=== PATIENT | male | born 1930 | race Caucasian/White ===

== ENCOUNTER 2017-02-08 15:41 | Inpatient (IN) | payer MEDICARE, MEDICAID ==
--- NOTE | 2017-02-08 16:49 | DR.GENAD ---
HPI - PCP Primary Care Physician: CLEM BAILEY - Complaint/Symptoms Chief Complaint Doctors Comments: Patient has been seen by his PCP on regular visitation and orthopedics today. He has been getting routine wound care of the right foot dorsally weekly. Chief Complaint:: PT STATES " I HAVE BEEN CONFUSED FOR 2 WEEKS AND MY LEGS HAVE BEEN HURTING AND THE PAIN MEDS DON'T WORK AND DR. [place] AND PTS WOUND MD THINKS THE CONFUSION MAY BE COMING FROM HIS WOUND.. Self Treatment fo Chief Complaint: PT HAS HOME HEALTH NURSES TO COME AND CHANGE HIS DRESSING TO HIS RIGHT FOOT.. PT WAS GIVEN ABX AND PAIN MEDS SATURDAY..BR - Source History Provided: Patient - Mode of Arrival Mode of Arrival: Wheelchair - Timing Onset of Chief Complaint: 01/25/17 PMH - PMH Past Medical History: Yes Past Medical History: GERD, Hypertension Past Surgical History: Yes Surgical History: Cholecystectomy - Family History History of Family Medical Conditions: Yes Family Medical History: Hypertension - Social History Does patient currently use any type of tobacco product: No Have you used tobacco products in the last 12 months: No Type of Tobacco Use: None Does any household member use tobacco: No Alcohol Use: None Do you use any recreational Drugs:: No Lives With: Dad Lives Where: Home - infectious screening In the last 2 months have you had wt loss of >10#?: NO Have you had fever, night sweats or hemotysis?: No Have you traveled outside the country in the last 6 months?: No Isolation: Standard ROS - Review of Systems Eyes: No Symptoms Reported ENTM: No Symptoms Reported Respiratoy: No Symptoms Reported Cardiovascular: No Symptoms Reported Gastrointestinal/Abdominal: No Symptoms Reported Genitourinary: No Symptoms Reported Neurological: No Symptoms Reported Musculoskeletal: No Symptoms Reported Integumentary: No Symptoms Reported Hematologic/Lymphatic: No Symptoms Reported Endocrine: No Symptoms Reported Psychiatric: No Symptoms Reported All Other Systems: Reviewed and Negative PE - Vital Signs Vitals: Temperature 98.1 F Pulse Rate 65 Respiratory Rate 22 Blood Pressure [Right Arm] 163/72 Blood Pressure [Left Arm] 161/71 Blood Pressure 167/70 O2 Sat by Pulse Oximetry 96 - General Limitations: No Limitations General Appearance: Alert, In No Apparent Distress - Head Head Exam: Normal Inspection, Atraumatic - Eyes Eye exam: Other (left with patch) - ENT ENT Exam: Normal Exam External Ear Exam: Normal External Inspection TM/Canal Exam: Bilateral Normal Nose Exam: Normal Nose Exam Mouth Exam: Normal Inspection, Other (skin graft left angle of mouth) Throat Exam: Normal Inspection - Neck Neck Exam: Normal Inspection, Full ROM. negative: Trachea Midline, Tenderness, Meningismus, Lymphadenopathy, Thyromegaly, Other - Chest Chest Inspection: Normal Inspection - Respiratory Respiratory Exam: Normal Lung Sounds Bilat Respiratory Exam: Bilateral Clear to Auscultation - Cardiovascular Cardiovascular Exam: Regular Rate, Normal Rhythm - Abdominal Exam Abdominal Exam: Normal Inspection Abdominal Tenderness: negative: RUQ, RLQ, LUQ, LLQ, Epigastrium, Suprapubic, Diffuse, Mild, Moderate, Severe, Other - Extremities Extremities Exam: Normal Inspection, Full ROM - Back Back Exam: Normal Inspection - Neurologic Neurological Exam: Alert, Oriented X3, CN II-XII Intact - Psychiatric Psychiatric Exam: Normal Affect - Skin Skin Exam: Warm, Dry, Intact, Other (dorsum of right foot with small clean wound ) Course - Reevaluation 1st: Unchanged - Consultation Called: 17:45 ( Returned call; recommended admission; patient want consideeration for skilled nursing placement) ROR - Labs Reviewed Laboratory Results Reviewed?: Yes (Hypokalemia; BUN/Cr elevqrted) Result Diagrams: 02/08/17 17:38 02/08/17 17:38 Laboratory: WBC 13.2 X10^3/uL (3.6-10.0) H 02/08/17 17:38 RBC 4.27 X10^6/uL (4.7-6.0) L 02/08/17 17:38 Hgb 13.2 g/dL (13.5-18.0) L 02/08/17 17:38 Hct 38.6 % (42.0-54.0) L 02/08/17 17:38 MCV 90.5 fL (80.0-100.0) 02/08/17 17:38 MCH 30.8 pg (27.0-34.0) 02/08/17 17:38 MCHC 34.1 g/dL (33.0-35.0) 02/08/17 17:38 RDW 14.2 % (11.6-16.5) 02/08/17 17:38 Plt Count 264 X10^3/uL (150.0-450.0) 02/08/17 17:38 MPV 8.5 fL (7.4-11.0) 02/08/17 17:38 Neut % 81.0 % (42.0-75.0) H 02/08/17 17:38 Lymph % 7.1 % (21.0-51.0) L 02/08/17 17:38 [place] % 10.0 % (0.0-13.0) 02/08/17 17:38 Eos % 0.7 % (0.9-2.9) L 02/08/17 17:38 Baso % 1.2 % (0.2-1.0) H 02/08/17 17:38 Neut # 10.7 x10^3/uL (2.2-4.8) H 02/08/17 17:38 Lymph # 0.9 X10^3/uL (1.3-2.9) L 02/08/17 17:38 [place] # 1.3 x10^3/uL (0.3-0.8) H 02/08/17 17:38 Eos # 0.1 x10^3/uL (0.0-0.2) 02/08/17 17:38 Baso # 0.2 X10^3/uL (0.0-0.1) H 02/08/17 17:38 Absolute Nucleated RBC 0.0 /100WBC 02/08/17 17:38 Sodium 144 mmol/L (136-145) 02/08/17 17:38 Corrected Sodium 144 mmol/L (136-145) 02/08/17 17:38 Potassium 3.1 mmol/L (3.5-5.1) L 02/08/17 17:38 Chloride 105 mmol/L (98-107) 02/08/17 17:38 Carbon Dioxide 26.5 mmol/L (21-32) 02/08/17 17:38 BUN 34 mg/dL (7-18) H 02/08/17 17:38 Creatinine 1.85 mg/dL (0.70-1.30) H 02/08/17 17:38 Est GFR (MDRD) Af Amer 45 (>60) L 02/08/17 17:38 Est GFR (MDRD) Non-Af 37 (>60) L 02/08/17 17:38 Glucose 114 mg/dL (65-99) H 02/08/17 17:38 Calcium 8.5 mg/dL (8.5-10.1) 02/08/17 17:38 Corrected Calcium TNP 02/08/17 17:38 Phosphorus 3.9 mg/dL (2.6-4.7) 02/08/17 17:38 Magnesium 1.3 mg/dL (1.7-2.9) L 02/08/17 17:38 Total Bilirubin 0.80 mg/dL (0.2-1.0) 02/08/17 17:38 AST 38 Units/L (15-37) H 02/08/17 17:38 ALT 26 Units/L (12-78) 02/08/17 17:38 Alkaline Phosphatase 69 Units/L (46-116) 02/08/17 17:38 Creatine Kinase 189 Units/L (39-308) 02/08/17 17:38 CK-MB (CK-2) 3.9 ng/mL (0-4.0) 02/08/17 17:38 CK/CKMB % Calc 2.1 % (<4) 02/08/17 17:38 Troponin I 0.06 ng/mL (0-1.5) 02/08/17 17:38 Total Protein 7.0 g/dL (6.4-8.2) 02/08/17 17:38 Albumin 3.6 g/dL (3.4-5.0) 02/08/17 17:38 Globulin 3.4 g/dL (2.5-4.5) 02/08/17 17:38 Albumin/Globulin Ratio 1.1 Ratio (1.1-2.1) 02/08/17 17:38 - XRAY XRAY Interpreted by: Radiologist (Chest: cardiomegaly without findings; CT Brain : Large intra-axial parieto-occipital mass causing mass effect and vasogenic edema suspected. Neoplasm is likely either primary or metastatic. Partially calcified possible dural based extra axial mass of the left cerebral convexity could represent a meningioma of the dural based metastasis is possible. Atrophy with ex vacuo ventricle sulcal enlargement) - Diagnosis Discharge Problem: occipital-parietal brain mass, Meningioma, Hypokalemia - Discharge Plan Condition: Stable - Follow ups/Referrals Follow ups/Referrals: LAWRENCE [place] [Primary Care Provider] - 3 days - Instructions
--- NOTE | 2017-02-08 17:29 | CT ---
CT head without contrast Indication: Confusion and pain in both knees Technique: Axial images from the skullbase to the vertex without contrast. Coronal and sagittal refo rmats provided. Comparison: No prior head CTs available. Findings: There is global atrophy with ex vacuo ventricle sulcal enlargement. Prominent extra-axial CSF spaces noted. Partially calcified probably dural-based mass is seen in the left cerebral convexi ty abutting the parietal lobe, measuring 1.6 x 1.5 x 1.8 cm on coronal image 20 and axial image 27. There is diffuse hypoattenuation in the right occipital and posterior parietal lobe, with compressio n of the posterior horn of the right lateral ventricle and mass effect. Peripheral hypodense area on axial image 12 measures 1.6 cm. Coronal image 29 suggest a 4.1 cm mass. Edema pattern suggest vasogenic edema. Bone windows shows no osseous abnormality. Paranasal sinuses and mastoid air cells are clear. There is no hemorrhage. Impression: 1. Large intra-axial right parieto-occipital mass causing mass effect and vasogenic edema suspected. Neoplasm is likely either primary or metastatic. MR followup recommended. 2. Partially calcified possibly dural-based extra-axial mass of the left cerebral convexity could re present a meningioma of the dural based metastasis is possible. Followup recommended. 3. Atrophy with ex vacuo ventricle sulcal enlargement. THE AVAILABILITY OF THE REPORT AND FINDINGS WERE COMMUNICATED TO Dr. Hutchinson by Dr. Leiva on February 08, 2017 at 5:30 p.m. Reported By:
[2017-02-08 17:46] LABS: BASOPHILS # (AUTO) 0.2 X10^3/uL (0.0-0.1); BASOPHILS % (AUTO) 1.2 % (0.2-1.0); EOSINOPHILS # (AUTO) 0.1 x10^3/uL (0.0-0.2); EOSINOPHILS % (AUTO) 0.7 % (0.9-2.9); HEMATOCRIT 38.6 % (42.0-54.0); HEMOGLOBIN 13.2 g/dL (13.5-18.0); LYMPHOCYTES # (AUTO) 0.9 X10^3/uL (1.3-2.9); LYMPHOCYTES % (AUTO) 7.1 % (21.0-51.0); MEAN CORPUSCULAR HEMOGLOBIN 30.8 pg (27.0-34.0); MEAN CORPUSCULAR HGB CONC 34.1 g/dL (33.0-35.0); MEAN CORPUSCULAR VOLUME 90.5 fL (80.0-100.0); MEAN PLATELET VOLUME 8.5 fL (7.4-11.0); MONOCYTES # (AUTO) 1.3 x10^3/uL (0.3-0.8); NEUTROPHILS # (AUTO) 10.7 x10^3/uL (2.2-4.8); PLATELET COUNT 264 X10^3/uL (150.0-450.0); RED BLOOD COUNT 4.27 X10^6/uL (4.7-6.0); RED CELL DISTRIBUTION WIDTH 14.2 % (11.6-16.5); WHITE BLOOD COUNT 13.2 X10^3/uL (3.6-10.0)
[2017-02-08 17:56] LABS: ALANINE AMINOTRANSFERASE 26 Units/L (12-78); ALBUMIN 3.6 g/dL (3.4-5.0); ALKALINE PHOSPHATASE 69 Units/L (46-116); ASPARTATE AMINO TRANSFERASE 38 Units/L (15-37); BLOOD UREA NITROGEN 34 mg/dL (7-18); CALCIUM 8.5 mg/dL (8.5-10.1); CARBON DIOXIDE 26.5 mmol/L (21-32); CHLORIDE 105 mmol/L (98-107); COR NA(FOR HYPERGLY) 144 mmol/L (136-145); CREATININE 1.85 mg/dL (0.70-1.30); GLUCOSE 114 mg/dL (65-99); SODIUM 144 mmol/L (136-145); eGFR BLACK RACES 45 (>60); eGFR NON BLACK RACES 37 (>60)
--- NOTE | 2017-02-08 18:02 | RAD ---
HISTORY: Confusion Study: Single view chest Comparison: 08/29/2014 Findings: There is chronic elevation of the hemidiaphragms that may represent underlying diaphragmatic hernias . The lungs are clear without consolidation, effusion or pneumothorax. Stable cardiomegaly. The sof t tissues are unremarkable. IMPRESSION: 1. Stable cardiomegaly without acute findings. Reported By:
[2017-02-08 18:11] LABS: CKMB % 2.1 % (<4); CREATINE KINASE MB 3.9 ng/mL (0-4.0); MAGNESIUM 1.3 mg/dL (1.7-2.9); PHOSPHORUS 3.9 mg/dL (2.6-4.7); TROPONIN I 0.06 ng/mL (0-1.5)
[2017-02-08] MEDS ORDERED: NS 1000 ML 1,000 ML IV SCH ×2 (19:00→22:00)
[2017-02-08] MEDS ORDERED: NS 1000 ML 1,000 ML with POTASSIUM CHLORIDE INJ 20 MEQ VIAL 20 MEQ IV SCH ×2 (21:10)
[2017-02-08] MEDS ORDERED: K-DUR TAB 20 MEQ PO PRN (22:21)
[2017-02-08] MEDS ORDERED: POTASSIUM CHLORIDE LIQ 20 MEQ UDC PO PRN (22:21)
[2017-02-08] MEDS ORDERED: K-LYTE EFFERVESCENT PO PRN (22:21)
[2017-02-08] MEDS ORDERED: K-RIDER 10 MEQ/NS 100 ML 10 MEQ/100 ML BAG IV PRN (22:21)
[2017-02-08] MEDS: NORCO 5/325 MG TAB PO PRN (22:27)
[2017-02-08] MEDS: DECADRON TAB PO SCH (22:28)
[2017-02-08] MEDS: NS + KCL 20 MEQ/L 1,000 ML IV SCH (23:25)
[2017-02-09 06:15] LABS: BASOPHILS % (AUTO) 0.3 % (0.2-1.0); EOSINOPHILS % (AUTO) 0.1 % (0.9-2.9); HEMATOCRIT 35.4 % (42.0-54.0); HEMOGLOBIN 12.3 g/dL (13.5-18.0); LYMPHOCYTES # (AUTO) 0.4 X10^3/uL (1.3-2.9); LYMPHOCYTES % (AUTO) 4.4 % (21.0-51.0); MEAN CORPUSCULAR HEMOGLOBIN 31.4 pg (27.0-34.0); MEAN CORPUSCULAR HGB CONC 34.7 g/dL (33.0-35.0); MEAN CORPUSCULAR VOLUME 90.3 fL (80.0-100.0); MEAN PLATELET VOLUME 8.8 fL (7.4-11.0); MONOCYTES # (AUTO) 0.2 x10^3/uL (0.3-0.8); MONOCYTES % (AUTO) 2.8 % (0.0-13.0); NEUTROPHILS # (AUTO) 7.4 x10^3/uL (2.2-4.8); NEUTROPHILS % (AUTO) 92.4 % (42.0-75.0); PLATELET COUNT 206 X10^3/uL (150.0-450.0); RED BLOOD COUNT 3.93 X10^6/uL (4.7-6.0); RED CELL DISTRIBUTION WIDTH 13.8 % (11.6-16.5)
[2017-02-09 06:26] LABS: ALANINE AMINOTRANSFERASE 117 Units/L (12-78); ALKALINE PHOSPHATASE 130 Units/L (46-116); ASPARTATE AMINO TRANSFERASE 171 Units/L (15-37); BLOOD UREA NITROGEN 26 mg/dL (7-18); CALCIUM 7.7 mg/dL (8.5-10.1); CHLORIDE 106 mmol/L (98-107); COR CA(FOR HYPOALB) 8.5 mg/dL (8.5-10.1); COR NA(FOR HYPERGLY) 144 mmol/L (136-145); CREATININE 1.41 mg/dL (0.70-1.30); GLUCOSE 152 mg/dL (65-99); SODIUM 143 mmol/L (136-145); TOTAL PROTEIN 6.1 g/dL (6.4-8.2); eGFR BLACK RACES > 60 (>60); eGFR NON BLACK RACES 51 (>60)
[2017-02-09 08:17] LABS: BAND NEUTROPHILS % 3 % (0-10)
[2017-02-09 08:20] LABS: PLATELET MORPHOLOGY COMMENT NORMAL (NORMAL)
[2017-02-09] MEDS ORDERED: AMLODIPINE BESYLATE OLMESARTAN PO SCH (09:00)
[2017-02-09] MEDS: NORVASC TAB 10 MG PO SCH (09:40)
[2017-02-09] MEDS: NexIUM PO SCH (09:40)
[2017-02-09] MEDS: BENICAR TAB 40 MG PO SCH (09:40)
[2017-02-09] MEDS: DECADRON TAB PO SCH ×2 (09:40→21:01)
[2017-02-09] MEDS: PROSCAR PO SCH (09:40)
[2017-02-09] MEDS: ARIMIDEX PO SCH (09:40)
[2017-02-09] MEDS: CHLORTHALIDONE PO SCH (09:40)
[2017-02-09] MEDS: COREG TAB 12.5 MG PO SCH ×2 (09:40→21:01)
[2017-02-09] MEDS: NS + KCL 20 MEQ/L 1,000 ML IV SCH ×3 (09:41→21:02)
--- NOTE | 2017-02-09 10:33 | CT ---
HISTORY: Suspected metastasis Study: Noncontrast CT scan of the chest Comparison: Chest x-ray and CT brain done February 08, 2017 Technique: non contrasted CT images of the chest are reviewed in axial, coronal and sagittal planes. Dose reduction techniques utilized automatic exposure control. Findings: There are changes of COPD with centrilobular and paraseptal emphysema. No evidence of pulmonary nodu le is seen. There are areas of linear scarring present in the lung bases. No consolidation is identi fied. There is no evidence of mediastinal adenopathy.. No evidence of thoracic aortic aneurysm is se en. There are right and left coronary artery calcifications. Small pericardial effusion is present m easuring about 8 millimeters in thickness. The heart is enlarged. A moderate-sized hiatal hernia is present containing gastric fundus. There is multilevel thoracic spondylosis and scoliosis of the tho racolumbar spine. IMPRESSION: COPD. Linear scarring is present in the lung bases. No dense consolidation is seen. There is no evid ence of pulmonary nodule. Small pericardial effusion. Hiatal hernia containing gastric fundus. Reported By:
[2017-02-09] MEDS ORDERED: MAGNESIUM SULFATE 1 GM/100 mL PREMIX 2 GM/200 ML BAG IV ONE (13:59)
[2017-02-09] MEDS: MAGNESIUM SULFATE 1 GM/100 mL PREMIX 1 GM/100 ML BAG IV SCH ×2 (14:02→15:15)
[2017-02-09] MEDS: LIPITOR TAB 20 MG PO SCH (21:01)
[2017-02-10 06:19] LABS: BASOPHILS % (AUTO) 0.3 % (0.2-1.0); HEMATOCRIT 35.2 % (42.0-54.0); HEMOGLOBIN 11.9 g/dL (13.5-18.0); LYMPHOCYTES # (AUTO) 0.6 X10^3/uL (1.3-2.9); LYMPHOCYTES % (AUTO) 4.2 % (21.0-51.0); MEAN CORPUSCULAR HEMOGLOBIN 30.6 pg (27.0-34.0); MEAN CORPUSCULAR HGB CONC 33.7 g/dL (33.0-35.0); MEAN CORPUSCULAR VOLUME 90.9 fL (80.0-100.0); MEAN PLATELET VOLUME 9.5 fL (7.4-11.0); MONOCYTES # (AUTO) 0.4 x10^3/uL (0.3-0.8); MONOCYTES % (AUTO) 3.1 % (0.0-13.0); NEUTROPHILS # (AUTO) 12.7 x10^3/uL (2.2-4.8); NEUTROPHILS % (AUTO) 92.4 % (42.0-75.0); PLATELET COUNT 221 X10^3/uL (150.0-450.0); RED BLOOD COUNT 3.88 X10^6/uL (4.7-6.0); RED CELL DISTRIBUTION WIDTH 14.1 % (11.6-16.5); WHITE BLOOD COUNT 13.7 X10^3/uL (3.6-10.0)
[2017-02-10 06:25] LABS: ALANINE AMINOTRANSFERASE 86 Units/L (12-78); ALBUMIN 2.7 g/dL (3.4-5.0); ALKALINE PHOSPHATASE 107 Units/L (46-116); ASPARTATE AMINO TRANSFERASE 61 Units/L (15-37); BLOOD UREA NITROGEN 23 mg/dL (7-18); CALCIUM 7.7 mg/dL (8.5-10.1); CARBON DIOXIDE 25.2 mmol/L (21-32); CHLORIDE 106 mmol/L (98-107); COR CA(FOR HYPOALB) 8.7 mg/dL (8.5-10.1); COR NA(FOR HYPERGLY) 141 mmol/L (136-145); CREATININE 1.26 mg/dL (0.70-1.30); GLUCOSE 153 mg/dL (65-99); MAGNESIUM 1.8 mg/dL (1.7-2.9); SODIUM 140 mmol/L (136-145); TOTAL PROTEIN 5.8 g/dL (6.4-8.2); eGFR BLACK RACES > 60 (>60); eGFR NON BLACK RACES 58 (>60)
[2017-02-10 06:48] LABS: BAND NEUTROPHILS % 6 % (0-10); PLATELET MORPHOLOGY COMMENT NORMAL (NORMAL); POIKILOCYTOSIS SLIGHT
[2017-02-10] MEDS: NS + KCL 20 MEQ/L 1,000 ML IV SCH ×2 (08:07→17:50)
[2017-02-10] MEDS: DECADRON TAB PO SCH ×2 (08:08→21:28)
[2017-02-10] MEDS: CHLORTHALIDONE PO SCH (08:08)
[2017-02-10] MEDS: BENICAR TAB 40 MG PO SCH (08:08)
[2017-02-10] MEDS: PROSCAR PO SCH (08:08)
[2017-02-10] MEDS: COREG TAB 12.5 MG PO SCH ×2 (08:08→21:27)
[2017-02-10] MEDS: ARIMIDEX PO SCH (08:08)
[2017-02-10] MEDS: NORVASC TAB 10 MG PO SCH (08:08)
[2017-02-10] MEDS: NexIUM PO SCH (08:08)
[2017-02-10 09:52] VITALS: BMI 22.8
[2017-02-10] MEDS ORDERED: BUTT CREAM (COMPOUND) TOP PRN (12:13)
[2017-02-10] MEDS: NORCO 5/325 MG TAB PO PRN ×2 (12:24→20:12)
[2017-02-10] MEDS: LIPITOR TAB 20 MG PO SCH (21:28)
[2017-02-11] MEDS: NS + KCL 20 MEQ/L 1,000 ML IV SCH ×3 (03:48→15:32)
[2017-02-11 06:12] LABS: BASOPHILS % (AUTO) 0.3 % (0.2-1.0); HEMATOCRIT 34.3 % (42.0-54.0); HEMOGLOBIN 11.9 g/dL (13.5-18.0); LYMPHOCYTES # (AUTO) 0.6 X10^3/uL (1.3-2.9); LYMPHOCYTES % (AUTO) 4.4 % (21.0-51.0); MEAN CORPUSCULAR HEMOGLOBIN 31.5 pg (27.0-34.0); MEAN CORPUSCULAR HGB CONC 34.6 g/dL (33.0-35.0); MEAN PLATELET VOLUME 9.6 fL (7.4-11.0); MONOCYTES # (AUTO) 0.4 x10^3/uL (0.3-0.8); MONOCYTES % (AUTO) 3.2 % (0.0-13.0); NEUTROPHILS # (AUTO) 12.3 x10^3/uL (2.2-4.8); NEUTROPHILS % (AUTO) 92.1 % (42.0-75.0); PLATELET COUNT 221 X10^3/uL (150.0-450.0); RED BLOOD COUNT 3.76 X10^6/uL (4.7-6.0); RED CELL DISTRIBUTION WIDTH 13.9 % (11.6-16.5); WHITE BLOOD COUNT 13.3 X10^3/uL (3.6-10.0)
[2017-02-11 06:32] LABS: ALANINE AMINOTRANSFERASE 64 Units/L (12-78); ALBUMIN 2.4 g/dL (3.4-5.0); ALKALINE PHOSPHATASE 87 Units/L (46-116); ASPARTATE AMINO TRANSFERASE 37 Units/L (15-37); BLOOD UREA NITROGEN 20 mg/dL (7-18); CALCIUM 7.5 mg/dL (8.5-10.1); CARBON DIOXIDE 24.6 mmol/L (21-32); CHLORIDE 108 mmol/L (98-107); COR CA(FOR HYPOALB) 8.8 mg/dL (8.5-10.1); COR NA(FOR HYPERGLY) 141 mmol/L (136-145); CREATININE 0.95 mg/dL (0.70-1.30); GLUCOSE 135 mg/dL (65-99); SODIUM 140 mmol/L (136-145); TOTAL PROTEIN 5.3 g/dL (6.4-8.2); eGFR BLACK RACES > 60 (>60); eGFR NON BLACK RACES > 60 (>60)
[2017-02-11 07:00] LABS: PLATELET MORPHOLOGY COMMENT NORMAL (NORMAL)
[2017-02-11] MEDS: NexIUM PO SCH (09:20)
[2017-02-11] MEDS: BENICAR TAB 40 MG PO SCH (09:20)
[2017-02-11] MEDS: CHLORTHALIDONE PO SCH (09:20)
[2017-02-11] MEDS: PROSCAR PO SCH (09:20)
[2017-02-11] MEDS: ARIMIDEX PO SCH (09:20)
[2017-02-11] MEDS: DECADRON TAB PO SCH ×2 (09:20→20:41)
[2017-02-11] MEDS: NORVASC TAB 10 MG PO SCH (09:20)
[2017-02-11] MEDS: COREG TAB 12.5 MG PO SCH ×2 (09:20→20:41)
[2017-02-11] MEDS: NORCO 5/325 MG TAB PO PRN ×2 (11:45→20:39)
[2017-02-11] MEDS: LEVAQUIN TAB 500 MG PO SCH (11:47)
--- NOTE | 2017-02-11 17:08 | PCM.PROG ---
Progress Note - Progress Note for Day of Date: 02/09/17 - Subjective Subjective: Patient is a 87yo male who was admitted to the hospital with diagnosis of brain mass, hypokalemia and dehydration. Patient is currently on NS with 20meq of KCL @100ml/hr and potassium replacement protocol. We are going to resume his home medications including Norvasc 10mg at bedtime, arimidex 1mg daily, Lipitor 20mg at bedtime, coreg 12.5 mg BID, Nexium 40mg daily, proscar 5mg daily, Benicar 40mg daily. Patient has a wound to his right foot that has been treat by dr felix, wound shows no redness or edema. Vital signs this am 96.8, 73, 20, 94% 196/80. Labs are within normal limits with the exception of RBC 3.9, Hgb 12.3, Hct 35.4, Neut% 92.4, Lymph% 4.4, Eos% 0.1, Neut# 7.4, Lymph # 0.4, [place]# 0.2, Potassium 2.7, BUN 26, Creatinine 1.41, Est GFR 51, Glucose 152, Calcium 7.7, Total Bilirubin 1.20, AST 171, ALT 117, Alkaline phosphatase 130, Total protein 6.1, Albumin 3.0, Albumin/globulin Ratio 1.0. We will continue his potassium replacement protocol for hypokalemia and mag rider x2, chest CT PSA, and CEA. We will follow up in the am with repeat labs. - Past Medical Family Social History Past Med/Fam/Surg Hx: No changes since H&P Allergies: Allergies Penicillins Allergy (Intermediate, Verified 02/09/17 06:19) metoprolol [From Toprol XL] Allergy (Unknown, Verified 02/09/17 06:19) (metoprolol) Sulfa (Sulfonamide Antibiotics) Allergy (Unknown, Verified 02/09/17 06:21) - Review of Systems ROS: No change since H&P - Vital Signs and I&O's Vital Signs: 96.8, 73, 20, 94% 196/80. Intake and Output: Intake & Output 02/09/17 02/10/17 02/11/17 02/12/17 11:59 11:59 11:59 11:59 Intake Total 474 3332 3014 1352 Output Total 195 395 500 575 Balance 279 2937 2514 777 - Physical Exam Oriented: Normal Eyes: Normal Ear: Normal Nose: Normal Throat: Normal Respiratory: Normal Cardiovascular: Normal : Normal Auscultation: Bowel Sounds: Normal Palpation: Normal Tenderness: Normal Skin: Wound (right foot) Musculoskeletal: Instability Psychiatric: Normal Mood Description: Calm Affect: Normal Speech Pattern: Clear, Appropriate - Laboratory and Diagnostics Result Diagrams: 02/11/17 03:33 02/11/17 03:33 Labs: Labs are within normal limits with the exception of RBC 3.9, Hgb 12.3, Hct 35.4 , Neut% 92.4, Lymph% 4.4, Eos% 0.1, Neut# 7.4, Lymph# 0.4, [place]# 0.2, Potassium 2.7, BUN 26, Creatinine 1.41, Est GFR 51, Glucose 152, Calcium 7.7, Total Bilirubin 1.20, AST 171, ALT 117, Alkaline phosphatase 130, Total protein 6.1, Albumin 3.0, Albumin/globulin Ratio 1.0. Laboratory - Plan (1) Brain mass Status: Acute Plan: monitor (2) Dehydration Status: Acute Plan: NS with 20meq of KCL @100ml/hr (3) GERD (gastroesophageal reflux disease) Status: Chronic Qualifiers: Esophagitis presence: E Plan: Nexium 40mg daily (4) Hypertension Status: Chronic Qualifiers: Hypertension type: H Plan: Norvasc 10mg at bedtime, Benicar 40mg daily
--- NOTE | 2017-02-11 17:11 | PCM.PROG ---
Progress Note - Progress Note for Day of Date: 02/10/17 - Subjective Subjective: Patient is a 87yo male who was admitted to the hospital with diagnosis of brain mass, hypokalemia and dehydration. Vital signs this am 97.4, 59, 20, 97%, 169/71. Labs are within normal limits with the exception of WBC 13.7 RBC 3.88, Hgb 11.9, Hct 35.2, Neut% 92.4, Lymph% 4.2, Eos% 0.0, Neut# 12.7 , Lymph# 0.6, BUN 23, Est GFR 58, Glucose 153, Calcium 7.7, AST 61, ALT 86, Total protein 5.8, Albumin 2.7, Albumin/globulin Ratio 0.9. Chest CT show COPD, linear scarring present in the lung bases, no dense consolidation is seen, there is evidence of pulmonary nodule. Small pericardial effusion, hiatal hernia containing gastric fundus. We will continue patient on current treatment and follow up in the am with repeat labs. - Past Medical Family Social History Past Med/Fam/Surg Hx: No changes since H&P Allergies: Allergies Penicillins Allergy (Intermediate, Verified 02/09/17 06:19) metoprolol [From Toprol XL] Allergy (Unknown, Verified 02/09/17 06:19) (metoprolol) Sulfa (Sulfonamide Antibiotics) Allergy (Unknown, Verified 02/09/17 06:21) - Review of Systems ROS: No change since H&P - Vital Signs and I&O's Vital Signs: 97.4, 59, 20, 97%, 169/71. Intake and Output: Intake & Output 02/09/17 02/10/17 02/11/17 02/12/17 11:59 11:59 11:59 11:59 Intake Total 474 3332 3014 1352 Output Total 195 395 500 575 Balance 279 8547 1598 027 - Physical Exam Oriented: Normal Eyes: Normal Ear: Normal Nose: Normal Throat: Normal Respiratory: Normal Cardiovascular: Normal : Normal Auscultation: Bowel Sounds: Normal Tenderness: Normal Skin: Wound (right foot) Musculoskeletal: Instability Psychiatric: Normal Mood Description: Calm Affect: Normal Speech Pattern: Clear, Appropriate - Laboratory and Diagnostics Result Diagrams: 02/11/17 03:33 02/11/17 03:33 Labs: Labs are within normal limits with the exception of WBC 13.7 RBC 3.88, Hgb 11.9 , Hct 35.2, Neut% 92.4, Lymph% 4.2, Eos% 0.0, Neut# 12.7, Lymph# 0.6, BUN 23, Est GFR 58, Glucose 153, Calcium 7.7, AST 61, ALT 86, Total protein 5.8, Albumin 2.7, Albumin/globulin Ratio 0.9. - Plan (1) Brain mass Status: Acute Plan: monitor (2) Dehydration Status: Acute Plan: NS with 20meq of KCL @100ml/hr (3) GERD (gastroesophageal reflux disease) Status: Chronic Qualifiers: Esophagitis presence: E Plan: Nexium 40mg daily (4) Hypertension Status: Chronic Qualifiers: Hypertension type: H Plan: Norvasc 10mg at bedtime, Benicar 40mg daily (5) Hypokalemia Status: Acute Plan: potassium replacement protocol
--- NOTE | 2017-02-11 17:12 | PCM.PROG ---
Progress Note - Progress Note for Day of Date: 02/11/17 - Subjective Subjective: Patient is a 87yo male who was admitted to the hospital with diagnosis of brain mass, hypokalemia and dehydration. Vital signs this am 97.9, 62, 20, 96%, 145/66. Labs are within normal limits with the exception of WBC 13.3, RBC 3.76, Hgb 11.9, Hct 34.3, Neut% 92.1, Lymph% 4.4, Eos% 0.0, Neut# 12.3 , Lymph# 0.6, Chloride 108, BUN 20, Glucose 135, Calcium 7.5, Total protein 5.3 , Albumin 2.4, Albumin/globulin Ratio 0.8. We are going to resume his Levaquin that he placed on by dr. felix for wound to right foot. Family and patient stated they would like to have prison skilled nursing placement. We will continue patient on current treatment with the addition of Levaquin and follow up in the am with repeat labs. - Past Medical Family Social History Past Med/Fam/Surg Hx: No changes since H&P Allergies: Allergies Penicillins Allergy (Intermediate, Verified 02/09/17 06:19) metoprolol [From Toprol XL] Allergy (Unknown, Verified 02/09/17 06:19) (metoprolol) Sulfa (Sulfonamide Antibiotics) Allergy (Unknown, Verified 02/09/17 06:21) - Review of Systems ROS: No change since H&P - Vital Signs and I&O's Vital Signs: Temperature 98.1 F Pulse Rate [Right Brachial] 62 Respiratory Rate 20 Blood Pressure [Right Arm] 142/79 Blood Pressure [Left Arm] 145/66 O2 Sat by Pulse Oximetry 94 Intake and Output: Intake & Output 02/09/17 02/10/17 02/11/17 02/12/17 11:59 11:59 11:59 11:59 Intake Total 474 3332 3014 1352 Output Total 195 395 500 575 Balance 279 7685 6304 847 - Physical Exam Oriented: Normal Eyes: Normal Ear: Normal Nose: Normal Throat: Normal Respiratory: Normal Cardiovascular: Normal : Normal Auscultation: Bowel Sounds: Normal Palpation: Normal Tenderness: Normal Skin: Wound (right foot) Musculoskeletal: Instability Psychiatric: Normal Mood Description: Calm Affect: Normal Speech Pattern: Clear, Appropriate - Laboratory and Diagnostics Result Diagrams: 02/11/17 03:33 02/11/17 03:33 Labs: Laboratory WBC 13.3 X10^3/uL (3.6-10.0) H 02/11/17 03:33 RBC 3.76 X10^6/uL (4.7-6.0) L 02/11/17 03:33 Hgb 11.9 g/dL (13.5-18.0) L 02/11/17 03:33 Hct 34.3 % (42.0-54.0) L 02/11/17 03:33 MCV 91.0 fL (80.0-100.0) 02/11/17 03:33 MCH 31.5 pg (27.0-34.0) 02/11/17 03:33 MCHC 34.6 g/dL (33.0-35.0) 02/11/17 03:33 RDW 13.9 % (11.6-16.5) 02/11/17 03:33 Plt Count 221 X10^3/uL (150.0-450.0) 02/11/17 03:33 Plt Count Comment Adequate (ADEQUATE) 02/11/17 03:33 MPV 9.6 fL (7.4-11.0) 02/11/17 03:33 Neut % 92.1 % (42.0-75.0) H 02/11/17 03:33 Lymph % 4.4 % (21.0-51.0) L 02/11/17 03:33 [place] % 3.2 % (0.0-13.0) 02/11/17 03:33 Eos % 0.0 % (0.9-2.9) L 02/11/17 03:33 Baso % 0.3 % (0.2-1.0) 02/11/17 03:33 Neut # 12.3 x10^3/uL (2.2-4.8) H 02/11/17 03:33 Lymph # 0.6 X10^3/uL (1.3-2.9) L 02/11/17 03:33 [place] # 0.4 x10^3/uL (0.3-0.8) 02/11/17 03:33 Eos # 0.0 x10^3/uL (0.0-0.2) 02/11/17 03:33 Baso # 0.0 X10^3/uL (0.0-0.1) 02/11/17 03:33 Absolute Nucleated RBC 0.2 /100WBC 02/11/17 03:33 Total Counted 100 02/11/17 03:33 Neutrophils % (Manual) 92 % (39-76) H 02/11/17 03:33 Band Neutrophils % 6 % (0-10) 02/10/17 03:55 Lymphocytes % (Manual) 6 % (13-43) L 02/11/17 03:33 Monocytes % (Manual) 1 % (4-9) L 02/11/17 03:33 Eosinophils % (Manual) 1 % (0-6) 02/11/17 03:33 Atypical Lymphocytes 1 02/09/17 04:40 Plt Morphology Comment Normal (NORMAL) 02/11/17 03:33 RBC Morphology Normal (NORMAL) 02/11/17 03:33 Poikilocytosis Slight A 02/10/17 03:55 Sodium 140 mmol/L (136-145) 02/11/17 03:33 Corrected Sodium 141 mmol/L (136-145) 02/11/17 03:33 Potassium 4.0 mmol/L (3.5-5.1) 02/11/17 03:33 Chloride 108 mmol/L (98-107) H 02/11/17 03:33 Carbon Dioxide 24.6 mmol/L (21-32) 02/11/17 03:33 BUN 20 mg/dL (7-18) H 02/11/17 03:33 Creatinine 0.95 mg/dL (0.70-1.30) 02/11/17 03:33 Est GFR (MDRD) Af Amer > 60 (>60) 02/11/17 03:33 Est GFR (MDRD) Non-Af > 60 (>60) 02/11/17 03:33 Glucose 135 mg/dL (65-99) H 02/11/17 03:33 Calcium 7.5 mg/dL (8.5-10.1) L 02/11/17 03:33 Corrected Calcium 8.8 mg/dL (8.5-10.1) 02/11/17 03:33 Phosphorus 3.9 mg/dL (2.6-4.7) 02/08/17 17:38 Magnesium 1.8 mg/dL (1.7-2.9) 02/10/17 03:55 Total Bilirubin 0.40 mg/dL (0.2-1.0) 02/11/17 03:33 AST 37 Units/L (15-37) 02/11/17 03:33 ALT 64 Units/L (12-78) 02/11/17 03:33 Alkaline Phosphatase 87 Units/L (46-116) 02/11/17 03:33 Creatine Kinase 189 Units/L (39-308) 02/08/17 17:38 CK-MB (CK-2) 3.9 ng/mL (0-4.0) 02/08/17 17:38 CK/CKMB % Calc 2.1 % (<4) 02/08/17 17:38 Troponin I 0.06 ng/mL (0-1.5) 02/08/17 17:38 Total Protein 5.3 g/dL (6.4-8.2) L 02/11/17 03:33 Albumin 2.4 g/dL (3.4-5.0) L 02/11/17 03:33 Globulin 2.9 g/dL (2.5-4.5) 02/11/17 03:33 Albumin/Globulin Ratio 0.8 Ratio (1.1-2.1) L 02/11/17 03:33 - Plan (1) Brain mass Status: Acute Plan: monitor (2) Dehydration Status: Acute Plan: NS with 20meq of KCL @100ml/hr (3) GERD (gastroesophageal reflux disease) Status: Chronic Qualifiers: Esophagitis presence: E Plan: Nexium 40mg daily (4) Hypertension Status: Chronic Qualifiers: Hypertension type: H Plan: Norvasc 10mg at bedtime, Benicar 40mg daily (5) Hypokalemia Status: Acute Plan: potassium replacement protocol
[2017-02-11] MEDS: LIPITOR TAB 20 MG PO SCH (20:39)
[2017-02-12] MEDS: NS + KCL 20 MEQ/L 1,000 ML IV SCH ×2 (01:08→09:15)
[2017-02-12 04:56] LABS: BASOPHILS % (AUTO) 0.2 % (0.2-1.0); HEMATOCRIT 35.7 % (42.0-54.0); HEMOGLOBIN 12.1 g/dL (13.5-18.0); LYMPHOCYTES # (AUTO) 0.5 X10^3/uL (1.3-2.9); LYMPHOCYTES % (AUTO) 4.1 % (21.0-51.0); MEAN CORPUSCULAR HEMOGLOBIN 31.4 pg (27.0-34.0); MEAN CORPUSCULAR HGB CONC 33.9 g/dL (33.0-35.0); MEAN CORPUSCULAR VOLUME 92.7 fL (80.0-100.0); MEAN PLATELET VOLUME 9.3 fL (7.4-11.0); MONOCYTES # (AUTO) 0.4 x10^3/uL (0.3-0.8); MONOCYTES % (AUTO) 2.8 % (0.0-13.0); NEUTROPHILS # (AUTO) 12.1 x10^3/uL (2.2-4.8); NEUTROPHILS % (AUTO) 92.9 % (42.0-75.0); PLATELET COUNT 217 X10^3/uL (150.0-450.0); RED BLOOD COUNT 3.85 X10^6/uL (4.7-6.0); RED CELL DISTRIBUTION WIDTH 14.1 % (11.6-16.5)
[2017-02-12 05:03] LABS: ALANINE AMINOTRANSFERASE 69 Units/L (12-78); ALBUMIN 2.5 g/dL (3.4-5.0); ALKALINE PHOSPHATASE 90 Units/L (46-116); ASPARTATE AMINO TRANSFERASE 34 Units/L (15-37); BLOOD UREA NITROGEN 28 mg/dL (7-18); CALCIUM 7.2 mg/dL (8.5-10.1); CARBON DIOXIDE 22.3 mmol/L (21-32); CHLORIDE 108 mmol/L (98-107); COR CA(FOR HYPOALB) 8.4 mg/dL (8.5-10.1); COR NA(FOR HYPERGLY) 139 mmol/L (136-145); GLUCOSE 140 mg/dL (65-99); SODIUM 138 mmol/L (136-145); TOTAL PROTEIN 5.2 g/dL (6.4-8.2); eGFR BLACK RACES > 60 (>60); eGFR NON BLACK RACES > 60 (>60)
[2017-02-12 05:34] LABS: BAND NEUTROPHILS % 2 % (0-10); PLATELET MORPHOLOGY COMMENT NORMAL (NORMAL)
[2017-02-12] MEDS: LEVAQUIN TAB 500 MG PO SCH (09:13)
[2017-02-12] MEDS: CHLORTHALIDONE PO SCH (09:13)
[2017-02-12] MEDS: ARIMIDEX PO SCH (09:13)
[2017-02-12] MEDS: NORVASC TAB 10 MG PO SCH (09:13)
[2017-02-12] MEDS: COREG TAB 12.5 MG PO SCH (09:14)
[2017-02-12] MEDS: NexIUM PO SCH (09:14)
[2017-02-12] MEDS: DECADRON TAB PO SCH (09:14)
[2017-02-12] MEDS: BENICAR TAB 40 MG PO SCH (09:14)
[2017-02-12] MEDS: PROSCAR PO SCH (09:14)
[2017-02-12 14:16] VITALS: BP 165/73
[2017-02-14 06:27] LABS: PSA TOTAL 0.1 ng/mL (0.0-4.0)
--- NOTE | 2017-02-14 18:49 | DR.H&P ---
H&P - History & Physical for Day of: H&P Date: 02/08/17 - Chief Complaint Chief Complaint: Confusion, weakness - Allergies Allergies/Adverse Reactions: Allergies Allergy/AdvReac Type Severity Reaction Status Date / Time Penicillins Allergy Intermediate Verified 02/09/17 06:19 metoprolol [From Toprol XL] Allergy Unknown Verified 02/09/17 06:19 Sulfa (Sulfonamide Allergy Unknown Verified 02/09/17 06:21 Antibiotics) - History of Present Illness History of Present Illness: Patient is a 87 yo male who presented to the emergency room with complaints of increased confusion, bilateral leg pain without relief from pain medication, patient has been seeing a um specialist related to wound of right foot and was started on antibiotics Saturday. Patient has a history of headaches, hypertension, GERD, Hernia, BPH, Arthritis, Basal cell carcinoma. Vital signs on arrival 98.1, 65, 22, 96%, 167/70. Labs on arrival are within normal limits with the exception of WBC 13.2, RBC 4.27, Hgb 13.2, Hct 38.6, Neut% 81.0, Lymph% 7.1, Eos% 0.7, Baso% 1.2, Neut# 10.7, Lymph# 0.9, [place]# 1.3, Baso# 0.2, Potassium 2.7, BUN 26, Creatinine 1.41, Est GFR 51, Glucose 152, Calcium 7.7, Total Bilirubin 1.20, AST 171, ALT 117, Alkaline phosphatase 130, Total protein 6.1, Albumin 3.0, Albumin/globulin ratio 1.0. Brain CT showed large intra-axial right parieto-occipital mass causing mass effect and vasogenic edema suspected, neoplasm is likely eith primary or metastic, MR follow up recommended, partiallt calcified possibly dural-base extra axial mass of the left cerebral convexity could represent a meningioma of the dural based metastasis is possible, atrophy with ex vacuo sulcal enlargement. Chest xray showed stable cardiomegaly without acute findings. Patient admitted with diagnosis of brain mass, hypokalemia and dehydration and started on NS @ 125ml/hr and potassium replacement protocol home medications resumed. - Past Medical History Past Medical History: Arthritis, GERD, Headaches, Hypertension Additional Medical History: hernia, BPH, basal cell carcinoma - Past Surgical History Surgical History: Cholecystectomy, Other - Family History Family Medical History: Diabetes Mellitus, Cancer, Hypertension - Social History Does patient currently use any type of tobacco product: No Have you used tobacco products in the last 12 months: No Type of Tobacco Use: None Does any household member use tobacco: No Alcohol Use: None Drug Use: None - Medications Home Medications: Anastrozole [ARIMIDEX tab 1 mg *] 1 tab PO DAILY 02/08/17 [History Confirmed ] Atorvastatin Calcium [LIPITOR Tab 20 mg *] 1 tab PO HS 02/08/17 [History Confirmed 02/08/17] - Review of Systems Constitutional: Weakness Eyes: No Symptoms Reported ENT: No Symptoms Reported Respiratory: No Symptoms Reported Cardiovascular: No Symptoms Reported Gastrointestinal: No Symptoms Reported Genitourinary: No Symptoms Reported Musculoskeletal: Leg Pain Skin: No Symptoms Reported Neurological: Weakness, Confusion - Physical Exam Vital Signs: 98.1, 65, 22, 96%, 167/70 Oriented: Normal Eyes: Normal Ear: Normal Nose: Normal Throat: Normal Respiratory: Clear Throughout Cardiovascular: Normal : Normal Auscultation: Bowel Sounds: Normal Palpation: Normal Tenderness: Normal Skin: Decreased [place]urg[place], Wound (to right foot ) Musculoskeletal: Instability Psychiatric: Normal Mood Description: Calm, Appropriate Affect: Normal Speech Pattern: Clear, Appropriate - Assessment/Plan (1) Brain mass Status: Acute Plan: monitor (2) Dehydration Status: Acute Plan: NS@125 (3) Hypokalemia Status: Acute Plan: potassium replacement protocol
== END 2017-02-12 16:05 | DRG 72 ==
LOC: ER 16:06 → MED/SURG 21:02
PROVIDERS: ADMIT Internal Medicine; ATTEND Obstetrics & Gynecology Obstetrics
DX: G93.89 Other specified disorders of brain (principal); E87.6 Hypokalemia; E86.0 Dehydration; K21.9 Gastro-esophageal reflux disease without esophagitis; I10 Essential (primary) hypertension; I51.7 Cardiomegaly; L97.519 Non-pressure chronic ulcer of other part of right foot with unspecified severity
CPT/HCPCS: 36415; 70450; 71010; 71250; 80053; 82378; 82550; 82553; 83735; 84100; 84132; 84153; 84154; 84484; 85025; 94760; 96365; 96367; 97535; 99284; A4216; A4222; S0138; S0170; J3480; J8540

== ENCOUNTER → 2017-02-14 | Outpatient (CLI) | payer OTHER, MEDICAID ==
[2017-02-12 14:16] VITALS: BP 165/73
--- NOTE | 2017-02-14 12:31 | MRI ---
HISTORY: Brain disorder. Study: MRI brain with without contrast. Comparison: CT head dated February 08, 2017. The Technique: Multiplanar multi-sequence MRI of the brain was obtained utilizing standard departmental protocol. Sagittal and axial T1 weighted images were obtained. Axial T2 and flair weighted images were performed as well. Axial diffusion weighted and ADC trace mapping was performed. Findings: Partially calcified dural-based mass seen in the left cerebral convexity with associated sulcal effa cement measuring 2.0 cm AP x 1.9 cm transverse by 1.5 cm craniocaudal in greatest dimension. No sign ificant restricted diffusion. This appears unchanged given technique and likely represents a meningi jarod. Within the right occipital/posterior parietal lobe there is an intra-axial T1 heterogeneous/T2 bright mass that measures 5.9 cm AP x 4.3 cm transverse by 4.8 cm craniocaudal in greatest dimension . This demonstrates restricted diffusion. This appears to involve the splenium of the corpus callosu m and crosses the midline. Marked associated vasogenic edema. There is compression of the occipital horn of the right lateral ventricle. Just posterior to this mass there is a T1 dark/T2 bright 1.3 x 1.9 cm lesion with a peripheral nodule that demonstrates restricted diffusion. This may represent a satellite lesion. No significant midline shift or hydrocephalus. No other obvious lesions are apprec iated. Nonspecific free fluid is seen within the mastoid air cells. Mild mucosal thickening of the e thmoidal air cells. Remaining paranasal sinuses are clear. The orbits are unremarkable. IMPRESSION: 1. 5.9 cm mass within the right occipital/posterior parietal lobes that demonstrates restricted dif fusion, vasogenic edema, and likely involvement of the splenium of the corpus callosum. This most li michelle represents a malignancy such is a glioblastoma multiforme. No significant hydrocephalus or midl ine shift. Recommend Neurosurgery consultation and MRI brain with contrast for further characterizat ion. 2. 2.0 cm dural-based mass likely representing a meningioma as above. Reported By:
== END ==
LOC: RAD 09:07
PROVIDERS: ATTEND Obstetrics & Gynecology Obstetrics
DX: G93.89 Other specified disorders of brain (principal)
CPT/HCPCS: 70551

== ENCOUNTER → 2017-03-12 | Outpatient (CLI) | payer OTHER, MEDICAID ==
[2017-02-12 14:16] VITALS: BP 165/73
--- NOTE | 2017-03-12 14:12 | VAS ---
VENOUS ULTRASOUND DOPPLER EXAMINATION OF THE BILATERAL LOWER EXTREMITIES HISTORY: Bilateral leg swelling Comparison: None TECHNIQUE: Multiple hoffman scale and color flow Doppler images of the deep venous system were obtaine d of the right and left lower extremity. FINDINGS: Noncompressibility of the left common femoral vein. The remainder of the examination of the left a r ight lower extremities is normal with normal compressibility and flow . IMPRESSION: 1. Occlusive DVT in the left common femoral vein. Reported By:
== END | disposition home or self-care (01) ==
LOC: RAD 13:11
PROVIDERS: ATTEND Obstetrics & Gynecology Obstetrics
DX: M79.89 Other specified soft tissue disorders (principal); I82.412 Acute embolism and thrombosis of left femoral vein
CPT/HCPCS: 93970

== ENCOUNTER 2017-03-18 00:39 | Emergency (ER) | payer OTHER, MEDICAID ==
[2017-03-18 00:47] VITALS: BP 111/55; BMI 22.1
--- NOTE | 2017-03-18 00:52 | DR.GENAD ---
HPI - PCP Primary Care Physician: Dr Nj - Complaint/Symptoms Chief Complaint Doctors Comments: Patient was sent from the correction secondary to decreasing oxygenation per pulse oximeter 77% on 2L. Upon arrival to the ED patient was suctioned by respiratory RA oxygenation 92% decreasing to 90RA. He is a DNR secondary to a malignant brain tumor (glioblastoma multiforme) . PMH - PMH Past Medical History: GERD, Hypertension Past Surgical History: Yes Surgical History: Cholecystectomy, Other - Family History Family Medical History: Diabetes Mellitus, Cancer, Hypertension - Social History Do you use any recreational Drugs:: No ROS - Review of Systems Eyes: No Symptoms Reported ENTM: No Symptoms Reported Respiratoy: No Symptoms Reported Cardiovascular: No Symptoms Reported Gastrointestinal/Abdominal: No Symptoms Reported Genitourinary: No Symptoms Reported Neurological: No Symptoms Reported Musculoskeletal: No Symptoms Reported Integumentary: No Symptoms Reported Hematologic/Lymphatic: No Symptoms Reported Endocrine: No Symptoms Reported Psychiatric: No Symptoms Reported All Other Systems: Reviewed and Negative PE - Vital Signs Vitals: Blood Pressure [Right Arm] 165/73 Blood Pressure [Left Arm] 145/66 Blood Pressure 165/73 - General General Appearance: In No Apparent Distress - Head Head Exam: Atraumatic - Eyes Eye exam: Normal Appearance, PERRL, EOMI - ENT ENT Exam: Normal Exam External Ear Exam: Normal External Inspection TM/Canal Exam: Bilateral Normal Nose Exam: Normal Nose Exam Mouth Exam: Normal Inspection Throat Exam: Normal Inspection - Neck Neck Exam: Normal Inspection - Chest Chest Inspection: Normal Inspection - Respiratory Respiratory Exam: Normal Lung Sounds Bilat Respiratory Exam: Bilateral Clear to Auscultation - Cardiovascular Cardiovascular Exam: Regular Rate, Normal Rhythm - Abdominal Exam Abdominal Exam: Normal Inspection Abdominal Tenderness: negative: RUQ, RLQ, LUQ, LLQ, Epigastrium, Suprapubic, Diffuse, Mild, Moderate, Severe, Other - Extremities Extremities Exam: Normal Inspection, Full ROM - Neurologic Neurological Exam: Alert, Oriented X3, CN II-XII Intact - Skin Skin Exam: Warm, Dry, Intact, Other (left facial skin disfigured from prior surgery) - Diagnosis Discharge Problem: Glioblastoma multiforme, DNR (do not resuscitate) - Discharge Plan Condition: Stable - Follow ups/Referrals Follow ups/Referrals: LAWRENCE NJ [Primary Care Provider] - 3 days - Instructions
== END 2017-03-18 00:50 ==
LOC: ER 00:39
DX: C71.9 Malignant neoplasm of brain, unspecified (principal); Z66 Do not resuscitate
CPT/HCPCS: 99281; 99282